=== PATIENT | female | born 1950 | race Caucasian/White ===

== ENCOUNTER → 2016-04-03 | Outpatient (CLI) | payer OTHER, BC | LOC: BMCIMAGING 11:17 | PROVIDERS: ATTEND Internal Medicine | DX: Z13.820 Encounter for screening for osteoporosis (principal); M85.80 Other specified disorders of bone density and structure, unspecified site ==

== ENCOUNTER → 2017-11-14 | Outpatient (CLI) | payer OTHER, BC | LOC: BMCIMAGING 10:30 | PROVIDERS: ATTEND Internal Medicine | DX: M16.0 Bilateral primary osteoarthritis of hip (principal); M51.36 Other intervertebral disc degeneration, lumbar region; M46.96 Unspecified inflammatory spondylopathy, lumbar region ==

== ENCOUNTER → 2017-12-18 | Outpatient (CLI) | payer OTHER, BC | LOC: BMCIMAGING 13:29 | PROVIDERS: ATTEND Orthopaedic Surgery | DX: M17.0 Bilateral primary osteoarthritis of knee (principal) ==

== ENCOUNTER → 2018-01-21 | Outpatient (CLI) | payer OTHER, BC | LOC: BMCIMAGING 09:53 | PROVIDERS: ATTEND Podiatrist Foot & Ankle Surgery | DX: M89.371 Hypertrophy of bone, right ankle and foot (principal); M79.89 Other specified soft tissue disorders; M77.31 Calcaneal spur, right foot; M77.32 Calcaneal spur, left foot; Q70.23 Fused toes, bilateral ==

== ENCOUNTER → 2018-01-24 | Outpatient (CLI) | payer OTHER, BC | LOC: FIMAGING 18:42 | PROVIDERS: ATTEND Podiatrist Foot & Ankle Surgery | DX: M76.62 Achilles tendinitis, left leg (principal) ==